=== PATIENT | female | born 1975 | race Two or more races ===

== ENCOUNTER 2018-10-13 19:42 | Emergency (ER) | payer SELFPAY ==
[~2018-10-13] VITALS: Ht 172.7 cm; Wt 78.0 kg
[~2018-10-13 19:42] MED LIST: ATROPINE SULFATE 1MG/10ML SYR ONE; CALCIUM CHLORIDE 1GM/10ML SYR IV ONE; EPINEPHRINE 0.1MG/ML (1:10,000) 10ML SYR ONE; SODIUM BICARBONATE 7.5% 0.9 MEQ/ML 50ML SYR IV ONE
[2018-10-13 19:54] VITALS: BP 0/0
== END 2018-10-13 19:54 | disposition expired ==
LOC: ER 19:42
DX: I46.9 Cardiac arrest, cause unspecified (principal); I31.3 Pericardial effusion (noninflammatory); G40.909 Epilepsy, unspecified, not intractable, without status epilepticus
CPT/HCPCS: 33010; 82962; 92950; 99285; J0461; J3490